=== PATIENT | female | born 1955 | race Caucasian/White ===

== ENCOUNTER 2022-01-01 10:42 | Outpatient (CLI) | payer MEDICARE, BC, SELFPAY ==
--- NOTE | 2022-01-01 10:45 | CRLHL7_ITS ---
For Patients: As a result of the Cures Act, medical imaging exams and procedure reports are released immediately into your electronic medical record. You may view this report before your referring provider. If you have questions, please contact your health care provider. RIGHT SCREENING MAMMOGRAM WITH COMPUTER-AIDED DETECTION AND TOMOSYNTHESIS TECHNIQUE: CC and MLO views were obtained. These mammographic images have been obtained using full-field digital technique. These mammographic images were interpreted with the benefit of computer-aided detection. Breast Tomosynthesis was used in this interpretation. COMPARISON FILM: 12/30/20, 12/24/19, 06/13/18. FINDINGS: There are scattered areas of fibroglandular density IMPRESSION: There is no radiographic evidence for malignancy. ASSESSMENT: BI-RADS Category 1: Negative RECOMMENDATION: Routine screening mammogram in 1 year. A lay language report of this examination will be provided to the patient. Benjamin Harrell M.D. Diagnostic Radiologist [email or web address] Transcribed: 7:52 p.m. OG/Dictated by: Benjamin Harrell MD @ 01/05/2022 11:46:00 AM (Electronically Signed)
== END 2022-01-01 10:43 | disposition home or self-care (01) ==
LOC: MAMMO 10:45
PROVIDERS: PCP Nurse Practitioner Family; Visit Provider Nurse Practitioner Family
DX: Z12.31 Encounter for screening mammogram for malignant neoplasm of breast (principal)
CPT/HCPCS: 77063; 77067

== ENCOUNTER 2022-01-13 14:35 | Outpatient (CLI) | payer MEDICARE, BC, SELFPAY ==
--- NOTE | 2022-01-13 15:00 | CRLHL7_ITS ---
For Patients: As a result of the Century Cures Act, medical imaging exams and procedure reports are released immediately into your electronic medical record. You may view this report before your referring provider. If you have questions, please contact your health care provider. Indication: New breast pain; hx recurrence twice Technique: Post contrast CT chest. 75 cc Isovue 370 intravenous contrast. Please note that all CT scans at this facility use dose modulation, iterative reconstruction, and/or weight-based dosing when appropriate to reduce radiation dose to as low as reasonably achievable. Comparison: Unilateral right screening mammogram 01/01/2022 Findings: There is chronic mild appearing compression of the T12 superior endplate. Disc space narrowing and spurring present within the mid thoracic spine, mild. No suspicious intraosseous lesion. Chronic ossicles adjacent to the inferior aspect of the right coracoid related to degenerative joint disease. Postop changes left mastectomy with implant reconstruction. Right breast tissue appears normal. No axillary, mediastinal or hilar adenopathy. No aortic dissection or aneurysm. No pulmonary embolism. Visualized upper abdomen unremarkable. Mild dependent atelectasis bilaterally. No pleural effusion, edema, pneumothorax or infiltrate. No pulmonary nodule. Mild reticular thickening in the periphery of the left upper lobe. Impression: Mild dependent atelectasis in both lower lobes. Mild chronic radiation pneumonitis within the anterior left upper lobe. No intrathoracic adenopathy. Intact left breast implant reconstruction. Mild chronic appearing insufficiency deformity of the T12 superior endplate. No cause for the right breast pain on today`s exam. Please note that all CT scans at this facility use dose modulation, iterative reconstruction, and/or weight-based dosing when appropriate to reduce radiation dose to as low as reasonably achievable. Dictated by Benjamin Harrell MD @ 01/15/2022 8:46:53 AM (Electronically Signed)
[2022-01-13 15:32] LABS: Creatinine* 0.6 mg/dL (0.5-1.5); Estimated Glomerular Filt Rate 100 ml/min
== END 2022-01-13 14:36 | disposition home or self-care (01) ==
LOC: CT 14:37
PROVIDERS: PCP Family Medicine; Visit Provider Nurse Practitioner Family
DX: C50.919 Malignant neoplasm of unspecified site of unspecified female breast (principal)
CPT/HCPCS: 36415; 71260; 82565; Q9967